=== PATIENT | female | born 1985 | race African-American/Black ===

== ENCOUNTER 2017-05-30 11:29 | Emergency (ER) | payer OTHER ==
--- NOTE | ~2017-05-30 | CT71 ---
[facility] A Service of [facility] RADIOLOGY TEXT RESULTS PATIENT: ISIDRA APODACA LOCATION: [facility] : 87 UNIT #: [id number] AGE: [address]: Francoise Padgett MD SEX: F ORDER DR: [id number] [facility]. [place], [place] [address] [id number] E MR#: [id number] Acc #: [id number] NAME: ISIDRA APODACA : 1985 SEX: F STUDY DATE/TIME: 05/30/2017 13:00 UNIT: [facility] ROOM: STUDY DESCRIPTION: CT Head Wo Contrast Attending Physician: Francoise Padgett M.D. Ordering Physician: Francoise Padgett M.D. Primary Care Physician: Generic Doctor Not In System MEDICAL IMAGING REPORT This report is preliminary unless electronic signature is present EXAM Noncontrast head CT. HISTORY Headaches x2 weeks. TECHNIQUE Axial noncontrast imaging of the brain demonstrates brain parenchyma to be normal. This CT exam was performed with one or more of the following radiation dose reduction techniques: automatic exposure control, adjustment of mA and/or kV according to patient size, and iterative reconstruction. FINDINGS No mass, mass effect or midline shift. No hemorrhage or abnormal extraaxial fluid collections. Ventricles, sulci and basilar cisterns appear normal. The bony calvaria, skull base, mastoids and sinuses unremarkable except for a small amount of left posterior ethmoid sinus disease. IMPRESSION 1. No definite acute intracranial abnormality identified on this noncontrast head CT. If patient's clinical symptoms persist, follow up neurological consult and MRI may be warranted due to its improved sensitivity for detection of neurological disease. 2. Minimal left posterior ethmoid sinus disease. Dictated by... Abhishek Dukes M.D. THIS IS AN ELECTRONICALLY VERIFIED REPORT Abhishek Dukes M.D. at 05/31/2017 12:31 PM [facility] A Service of [facility] RADIOLOGY TEXT RESULTS PATIENT: ISIDRA APODACA LOCATION: [facility] : 87 UNIT #: [id number] AGE: [address]: rFancoise Padgett MD SEX: F ORDER DR: Aravind TD: 05/31/2017 00:40 JOB #: [id number] MEDICAL IMAGING REPORT Page 1 of 1 COPY
[~2017-05-30 11:29] MED LIST: GYNE-LOTRIMIN45 GM TOP; PHENERGAN PO; PRENATAL MULITV1 TAB PO
[2017-05-30 12:02] LABS: BASOPHIL# 0.1 X10e3 (0-0.3); BASOPHIL% 0.7 % (0-2.5); EOSINOPHIL# 0.1 X10e3 (0-0.7); EOSINOPHIL% 1.4 % (0.0-7.0); HEMATOCRIT 43.8 % (35.0-45.0); HEMOGLOBIN 14.1 gm/dL (12.0-16.0); LYMPHOCYTE# 1.6 X10e3 (1.0-3.5); LYMPHOCYTE% 22.1 % (17.0-45.0); MEAN CELL VOLUME 84.6 FL (83-96); MEAN CORPUSCULAR HEMOGLOBIN 27.1 PG (28-34); MEAN CORPUSCULAR HGB CONC 32.1 g/dL (30-36); MEAN PLATELET VOLUME 9.2 FL (6.5-11.5); MONOCYTE# 0.4 X10e3 (0-1.0); MONOCYTE% 5.8 % (3.0-12.0); NEUTROPHIL# 5.2 X10e3 (1.5-7.1); PLATELET COUNT 250 X10e3 (140-420); RED BLOOD COUNT 5.18 X10e (3.90-5.30); RED CELL DISTRIBUTION WIDTH 13.4 % (11.0-15.5); WHITE BLOOD COUNT 7.5 X10e3 (4.0-10.5)
[2017-05-30 12:08] LABS: DIFF IND NO
[2017-05-30 12:27] LABS: URINE SOURCE CLEAN CATCH
[2017-05-30 12:32] LABS: ALBUMIN SERUM 4.2 g/dL (3.5-5.0); BILIRUBIN, DIRECT 0.1 mg/dL (0.0-0.2); BILIRUBIN,INDIRECT 0.5 mg/dL (0.0-0.9); BILIRUBIN,TOTAL 0.6 mg/dL (0.2-2.0); CALCIUM SERUM 9.5 mg/dL (8.4-10.2); CREATININE SERUM 0.5 mg/dL (0.6-1.4); GLOM FILT RATE Estimated 149.5 mL/min (>60); POTASSIUM 3.8 mmol/L (3.5-5.1)
[2017-05-30 12:34] LABS: URINE APPEARANCE CLOUDY; URINE BILIRUBIN NEG (NEG); URINE BLOOD NEG (NEG); URINE COLOR DK YELLOW; URINE GLUCOSE NEG (NEG); URINE KETONE 3+ (NEG); URINE LEUKOCYTE ESTERASE NEG (NEG); URINE NITRATE NEG (NEG); URINE PH 5.5 (5-8); URINE PROTEIN NEG (NEG); URINE SPECIFIC GRAVITY 1.031 (1.003-1.035); URINE UROBILINOGEN 0.2 MG/DL (NEG)
[2017-05-30 12:39] LABS: CULTURE INDICATED? NO
== END 2017-05-30 15:36 | disposition home or self-care (01) ==
LOC: CED 11:29
PROVIDERS: Emergency Medicine
DX: E86.0 Dehydration (principal); G47.00 Insomnia, unspecified
CPT/HCPCS: 36415; 70450; 80048; 80076; 81003; 84703; 85025; 96361; 96374; 96375; 99284; J1100; J1200; J1885; J2270; J2765